=== PATIENT | male | born 1975 | race Caucasian/White ===

== ENCOUNTER → 2021-03-02 | Outpatient (CLI) | payer OTHER ==
[~2021-03-02] MED LIST: CHOLESTEROL
== END ==
LOC: M.ULTRA 07:22
PROVIDERS: ATTEND Family Medicine
DX: K76.0 Fatty (change of) liver, not elsewhere classified (principal); R19.7 Diarrhea, unspecified; R16.1 Splenomegaly, not elsewhere classified